=== PATIENT | male | born 1985 | race Caucasian/White ===

== ENCOUNTER 2016-12-02 17:08 | Emergency (ER) | payer MEDICAID ==
--- NOTE | 2016-12-02 17:58 | ED ---
Substance Abuse/Use - HPI Summary HPI Summary: 31yo male presents after getting in a verbal altercation with his parents while he was intoxicated from alcohol. His parents called the police who decided to bring the patient here to 'diffuse things' per patient. Patient was not charged by the police. No other c/os or concerns. No history of physical withdrawal. Denies any other substance. Denies HI/SI. Denies previous HI/SI or violent behavior. Patient without nausea, vomiting or trauma. Patient gave permission to discuss with his mother, Doris See. Per mother, same story as above. Mother asked if she could come now to pick him up. She stated that she has contacted a rehab facility who is willing to take him. She asked that we encourage him to go. She states that she feels safe with him at home. She does not wish to have another MHE, and does not feel that he is suicidal or poses a harm to others. She would like to take him home. - History Of Current Complaint Chief Complaint: ED Stated Complaint: 2208 Time Seen by Provider: 12/02/16 17:28 - Allergies/Home Medications Allergies/Adverse Reactions: Allergies Allergy/AdvReac Type Severity Reaction Status Date / Time No Known Allergies Allergy Verified 11/22/16 09:16 PMH/Surg Hx/FS Hx/Imm Hx Psychiatric History: Reports: Hx Anxiety, Hx Depression, Hx Substance Abuse Denies: Hx Eating Disorder Infectious Disease History: No Infectious Disease History: Denies: Traveled Outside the [place] in Last 30 Days - Family History Known Family History: Positive: Other - alcoholism Negative: Diabetes - Social History Lives: With Family Alcohol Use: Daily - 3/4 of bottle of whiskey today, but not daily Substance Use Type: Reports: None Substance Use Comment - Amount & Last Used: unknown Hx Tobacco Use: No Smoking Status (MU): Never Smoked Tobacco Review of Systems Positive: Slurred Speech - secondary to intoxication All Other Systems Reviewed And Are Negative: Yes Physical Exam - Summary Physical Exam Summary: GENERAL: Well appearing, No acute distress, well nourished. Slightly slurred speech, A and O x 3. Coherent. Normal gait. HEENT: Head atraumatic/normocephalic, EOMI/DENISE, conjunctiva clear NECK: Supple with normal range of motion during conversation. CARDIAC: RRR without murmur, rub or gallop LUNGS: Clear to auscultation without wheezing, rales or rhonchi. Normal respiratory effort. Breath sounds are symmetrical and equal. ABDOMEN: Abdomen is soft and non-tender. MUSCULOSKELETAL: Moves all extremities well. There is no peripheral edema. SKIN: Warm and dry, skin color reflects adequate perfusion. NEUROLOGICAL: Patient is alert and appropriate. Cranial nerves are grossly intact. PSYCHIATRIC: Intoxicated, but coherent and appropriate. Vital Signs On Initial Exam: Initial Vitals Temp Pulse Resp BP Pulse Ox 98.2 F 99 20 141/91 97 12/02/16 17:17 12/02/16 17:17 12/02/16 17:17 12/02/16 17:17 12/02/16 17:17 Diagnostics - Vital Signs Vital Signs Temp Pulse Resp BP Pulse Ox 12/02/16 17:17 98.2 F 99 20 141/91 97 - Laboratory Lab Statement: Any lab studies that have been ordered have been reviewed, and results considered in the medical decision making process. Course/Dx - Course Assessment/Plan: 31yo male with h/o alcohol abuse presents acutely intoxicated at the recommendation of the police after he had a verbal altercation with his parents who he lives with. Patient is not HI/SI. He is slurring his words, but he is coherent, alert and oriented. Discussed with mother at his request, who is comfortable bringing him home. Family and patient declined bloodwork. Patient eating and drinking without difficulty. No history of seizures/dt from withdrawal. Patient is considering inpatient rehab which was reinforced here, and is currently connected with an out patient facility. Discussed with Dr. Iqbal who agrees with plan of care. To return with any problems, concerns or worsening symptoms. - Diagnoses Provider Diagnoses: Acute alcohol intoxication - Physician Notifications Discussed Care Of Patient With: Dr. Iqbal Discharge - Discharge Plan Condition: Good Disposition: HOME Patient Education Materials: Alcohol Intoxication (ED), Alcohol Dependence (ED) Referrals: [facility] [place] [facility] [Outside] - 2 Days Additional Instructions: Please strongly consider an in patient rehabilitation facility to treat your alcoholism. There are multiple options have been given to you in your discharge packet. Please return with any problems, concerns or new/worsening symptoms.
[2016-12-02 18:37] VITALS: BP 128/71
== END 2016-12-02 18:36 | disposition home or self-care (01) ==
LOC: ED 17:08
DX: F10.129 Alcohol abuse with intoxication, unspecified (principal); R47.81 Slurred speech
CPT/HCPCS: 99281

== ENCOUNTER → 2016-12-08 19:38 | Emergency (ER) | payer MEDICAID ==
[2016-12-08 19:58] LABS: Urine Bilirubin Negative (Negative); Urine Glucose Negative (Negative); Urine Nitrite Negative (Negative)
[2016-12-08 20:07] LABS: Hematocrit 44 % (42-52); Hemoglobin 14.6 g/dl (14.0-18.0); Mean Corpuscular HGB Conc 33 g/dl (31-36); Mean Corpuscular Hemoglobin 30 pg (27-31); Mean Corpuscular Volume 91 fL (80-94); Mean Platelet Volume 7 um3 (7.4-10.4); Red Blood Count 4.82 10^6/ul (4.0-5.4); Red Cell Distribution Width 14 % (10.5-15); White Blood Count 5.3 10^3/ul (3.5-10.8)
[2016-12-08 20:13] LABS: Benzodiazepine Urine Screen None Detected (None Detect)
[2016-12-08 20:20] LABS: ALT 17 U/L (7-52); Albumin 4.7 g/dL (3.2-5.2); Alkaline Phosphatase 62 U/L (34-104); BUN/Creatinine Ratio 12.4 (8-20); Blood Urea Nitrogen 12 mg/dL (6-24); CO2 Carbon Dioxide 22 mmol/L (22-32); Calcium 9.6 mg/dL (8.6-10.3); Chloride 106 mmol/L (101-111); EGFR African American 114.6 (>60); EGFR Non-African American 89.1 (>60); Globulin 3.6 g/dL (2-4); Glucose 105 mg/dL (70-100); Sodium 135 mmol/L (133-145); Total Protein 8.3 g/dL (6.4-8.9)
[2016-12-08 21:00] LABS: Acetaminophen < 15 mcg/mL; Alcohol 314 mg/dL (<10); Salicylate < 2.50 mg/dL (<30)
[2016-12-08 21:01] LABS: AST 20 U/L (13-39); Anion Gap 7 mmol/L (2-11); Potassium 4.7 mmol/L (3.5-5.0)
[2016-12-08 21:11] LABS: TSH (Thyroid Stimulating Horm) 1.08 mcIU/mL (0.34-5.60)
--- NOTE | 2016-12-08 22:43 | ED ---
Psychiatric Complaint - HPI Summary HPI Summary: Patient is BIB police after his parents called the police. He says he does not know why his parents chose to do this. According to him he was simply in his room drinking beer and thinks his parents don't know how to talk to him about his drinking, and that "he has worn out his welcome". He has been living with them for the past two months while he tries "to find the perfect job". He says his mother told the police he wanted to kill himself, and he adamantly denies this, and denies he has ever wanted or tried to harm himself. He denies HI as well. - History Of Current Complaint Chief Complaint: EDMentalHealth Time Seen by Provider: 12/08/16 19:44 Hx Obtained From: Patient Onset/Duration: Gradual Onset Timing: Constant Severity Initially: Severe Severity Currently: Mild Character: Stuporous - patient appears intoxicated and has slurred speech Aggravating Factor(s): Alcohol Use Alleviating Factor(s): Nothing Associated Signs And Symptoms: Positive: Social Withdrawal - Allergies/Home Medications Allergies/Adverse Reactions: Allergies Allergy/AdvReac Type Severity Reaction Status Date / Time No Known Allergies Allergy Verified 12/09/16 06:57 Home Medications: Home Medications Sertraline* [Zoloft*] 50 mg PO DAILY 12/09/16 [History Confirmed 12/09/16] PMH/Surg Hx/FS Hx/Imm Hx Psychiatric History: Reports: Hx Anxiety, Hx Depression, Hx of Violent Episodes Against Others, Hx Substance Abuse Denies: Hx Eating Disorder Infectious Disease History: No Infectious Disease History: Denies: Traveled Outside the [place] in Last 30 Days - Family History Known Family History: Positive: Unknown - unable to obtain, Other - alcoholism Negative: Diabetes - Social History Occupation: Unemployed Lives: With Family Alcohol Use: Daily Substance Use Type: Reports: None Substance Use Comment - Amount & Last Used: unknown Hx Tobacco Use: No Smoking Status (MU): Never Smoked Tobacco Review of Systems Positive: Other - alcohol intoxication All Other Systems Reviewed And Are Negative: Yes Physical Exam Triage Information Reviewed: Yes Vital Signs On Initial Exam: Initial Vitals Temp Pulse Resp BP Pulse Ox 99 F 102 16 147/86 96 12/08/16 19:46 12/08/16 19:46 12/08/16 19:46 12/08/16 19:46 12/08/16 19:46 Vital Signs Reviewed: Yes Appearance: Positive: Well-Appearing, No Pain Distress, Well-Nourished Skin: Positive: Warm, Skin Color Reflects Adequate Perfusion, Dry, Soft Head/Face: Positive: Normal Head/Face Inspection Eyes: Positive: EOMI, [place], Conjunctiva Clear ENT: Positive: Hearing grossly normal Respiratory/Lung Sounds: Positive: Clear to Auscultation, Breath Sounds Present Cardiovascular: Positive: RRR Abdomen Description: Positive: Nontender, Soft Bowel Sounds: Positive: Present Musculoskeletal: Negative: Edema Left, Edema Right Neurological: Positive: Sensory/Motor Intact, Alert, Oriented to Person Place, Time, [place] Bundle Intact Distally, Normal Gait Psychiatric: Positive: Affect/Mood Appropriate - patient is cooperative and cordial during exam AVPU Assessment: Alert Diagnostics - Vital Signs Vital Signs Temp Pulse Resp BP Pulse Ox 12/08/16 19:46 99 F 102 16 147/86 96 - Laboratory Lab Results: Lab Results 12/08/16 12/08/16 12/08/16 Range/Units 19:41 19:41 19:52 WBC 5.3 (3.5-10.8) 10^3/ul RBC 4.82 (4.0-5.4) 10^6/ul Hgb 14.6 (14.0-18.0) g/dl Hct 44 (42-52) % MCV 91 (80-94) fL MCH 30 (27-31) pg MCHC 33 (31-36) g/dl RDW 14 (10.5-15) % Plt Count 248 (150-450) 10^3/ul MPV 7 L (7.4-10.4) um3 Neut % (Auto) 51.5 (38-83) % Lymph % (Auto) 36.1 (25-47) % [place] % (Auto) 10.5 H (1-9) % Eos % (Auto) 1.6 (0-6) % Baso % (Auto) 0.3 (0-2) % Absolute Neuts (auto) 2.7 (1.5-7.7) 10^3/ul Absolute Lymphs (auto) 1.9 (1.0-4.8) 10^3/ul Absolute Monos (auto) 0.6 (0-0.8) 10^3/ul Absolute Eos (auto) 0.1 (0-0.6) 10^3/ul Absolute Basos (auto) 0 (0-0.2) 10^3/ul Absolute Nucleated RBC 0 10^3/ul Nucleated RBC % 0.1 Sodium (133-145) mmol/L Potassium (3.5-5.0) mmol/L Chloride (101-111) mmol/L Carbon Dioxide (22-32) mmol/L Anion Gap (2-11) mmol/L BUN (6-24) mg/dL Creatinine (0.67-1.17) mg/dL Est GFR ( Amer) (>60) Est GFR (Non-Af Amer) (>60) BUN/Creatinine Ratio (8-20) Glucose (70-100) mg/dL Calcium (8.6-10.3) mg/dL Total Bilirubin (0.2-1.0) mg/dL AST (13-39) U/L ALT (7-52) U/L Alkaline Phosphatase (34-104) U/L Total Protein (6.4-8.9) g/dL Albumin (3.2-5.2) g/dL Globulin (2-4) g/dL Albumin/Globulin Ratio (1-3) TSH (0.34-5.60) mcIU/mL Urine Color Straw Urine Appearance Clear Urine pH 5.0 (5-9) Ur Specific [place] 1.006 L (1.010-1.030) Urine Protein Negative (Negative) Urine Ketones Negative (Negative) Urine Blood Negative (Negative) Urine Nitrate Negative (Negative) Urine Bilirubin Negative (Negative) Urine Urobilinogen Negative (Negative) Ur Leukocyte Esterase Negative (Negative) Urine Glucose Negative (Negative) Salicylates (<30) mg/dL Urine Opiates Screen None detected (None Detect) Acetaminophen mcg/mL Ur Barbiturates Screen None detected (None Detect) Ur Phencyclidine Scrn None detected (None Detect) Ur Amphetamines Screen None detected (None Detect) U Benzodiazepines Scrn None detected (None Detect) Urine Cocaine Screen None detected (None Detect) U Cannabinoids Screen None detected (None Detect) Serum Alcohol (<10) mg/dL 12/08/16 Range/Units 19:52 WBC (3.5-10.8) 10^3/ul RBC (4.0-5.4) 10^6/ul Hgb (14.0-18.0) g/dl Hct (42-52) % MCV (80-94) fL MCH (27-31) pg MCHC (31-36) g/dl RDW (10.5-15) % Plt Count (150-450) 10^3/ul MPV (7.4-10.4) um3 Neut % (Auto) (38-83) % Lymph % (Auto) (25-47) % [place] % (Auto) (1-9) % Eos % (Auto) (0-6) % Baso % (Auto) (0-2) % Absolute Neuts (auto) (1.5-7.7) 10^3/ul Absolute Lymphs (auto) (1.0-4.8) 10^3/ul Absolute Monos (auto) (0-0.8) 10^3/ul Absolute Eos (auto) (0-0.6) 10^3/ul Absolute Basos (auto) (0-0.2) 10^3/ul Absolute Nucleated RBC 10^3/ul Nucleated RBC % Sodium 135 (133-145) mmol/L Potassium 4.7 (3.5-5.0) mmol/L Chloride 106 (101-111) mmol/L Carbon Dioxide 22 (22-32) mmol/L Anion Gap 7 (2-11) mmol/L BUN 12 (6-24) mg/dL Creatinine 0.97 (0.67-1.17) mg/dL Est GFR ( Amer) 114.6 (>60) Est GFR (Non-Af Amer) 89.1 (>60) BUN/Creatinine Ratio 12.4 (8-20) Glucose 105 H (70-100) mg/dL Calcium 9.6 (8.6-10.3) mg/dL Total Bilirubin 0.30 (0.2-1.0) mg/dL AST 20 (13-39) U/L ALT 17 (7-52) U/L Alkaline Phosphatase 62 (34-104) U/L Total Protein 8.3 (6.4-8.9) g/dL Albumin 4.7 (3.2-5.2) g/dL Globulin 3.6 (2-4) g/dL Albumin/Globulin Ratio 1.3 (1-3) TSH 1.08 (0.34-5.60) mcIU/mL Urine Color Urine Appearance Urine pH (5-9) Ur Specific [place] (1.010-1.030) Urine Protein (Negative) Urine Ketones (Negative) Urine Blood (Negative) Urine Nitrate (Negative) Urine Bilirubin (Negative) Urine Urobilinogen (Negative) Ur Leukocyte Esterase (Negative) Urine Glucose (Negative) Salicylates < 2.50 (<30) mg/dL Urine Opiates Screen (None Detect) Acetaminophen < 15 mcg/mL Ur Barbiturates Screen (None Detect) Ur Phencyclidine Scrn (None Detect) Ur Amphetamines Screen (None Detect) U Benzodiazepines Scrn (None Detect) Urine Cocaine Screen (None Detect) U Cannabinoids Screen (None Detect) Serum Alcohol 314 H (<10) mg/dL Result Diagrams: 12/08/16 19:52 12/08/16 19:52 Lab Statement: Any lab studies that have been ordered have been reviewed, and results considered in the medical decision making process. Course/Dx - Differential Dx/Clinical Impression Differential Diagnosis/HQI/PQRI: Positive: Acute Psychosis, Alcohol Intoxication , Anxiety, Bipolar Disorder, Depression, Schizophrenia, Suicidal Ideation Provider Diagnosis: Alcohol intoxication - Physician Notifications Discussed Care Of Patient With: Patient signed out to Dr. Gupta. Time Discussed With Above Provider: 02:00 Patient Is Medically Stable For: Psych Evaluation Discharge - Discharge Plan Condition: Stable Disposition: HOME Referrals: Amos Gonzalez MD [Primary Care Provider] -
[2016-12-09 13:24] VITALS: BP 140/87
--- NOTE | 2016-12-09 15:27 | ED ---
Progress - Progress Note Progress Note: DISCHARGE PER PSYCH DISPO: HOME - Consult/PCP Time Called: 05:00 Course/Dx - Diagnoses Provider Diagnoses: Alcohol intoxication
== END | disposition home or self-care (01) ==
LOC: ED 19:38
DX: F10.129 Alcohol abuse with intoxication, unspecified (principal); Y90.9 Presence of alcohol in blood, level not specified
CPT/HCPCS: 36415; 80053; 80307; 80320; 80329; 81003; 84443; 85025; 99284; G0480

== ENCOUNTER 2016-12-22 18:26 | Emergency (ER) | payer MEDICAID ==
[2016-12-22 22:31] LABS: Hematocrit 40 % (42-52); Hemoglobin 13.7 g/dl (14.0-18.0); Mean Corpuscular HGB Conc 34 g/dl (31-36); Mean Corpuscular Hemoglobin 31 pg (27-31); Mean Corpuscular Volume 91 fL (80-94); Mean Platelet Volume 7 um3 (7.4-10.4); Red Blood Count 4.44 10^6/ul (4.0-5.4); Red Cell Distribution Width 13 % (10.5-15); White Blood Count 4.4 10^3/ul (3.5-10.8)
[2016-12-22 22:35] LABS: Urine Bilirubin Negative (Negative); Urine Glucose Negative (Negative); Urine Nitrite Negative (Negative)
[2016-12-22 22:44] LABS: ALT 17 U/L (7-52); AST 23 U/L (13-39); Albumin 4.4 g/dL (3.2-5.2); Alkaline Phosphatase 49 U/L (34-104); Anion Gap 5 mmol/L (2-11); BUN/Creatinine Ratio 12.2 (8-20); Benzodiazepine Urine Screen None Detected (None Detect); Blood Urea Nitrogen 12 mg/dL (6-24); CO2 Carbon Dioxide 29 mmol/L (22-32); Calcium 9.2 mg/dL (8.6-10.3); Chloride 107 mmol/L (101-111); EGFR African American 113.3 (>60); EGFR Non-African American 88.1 (>60); Glucose 106 mg/dL (70-100); Potassium 3.9 mmol/L (3.5-5.0); Sodium 141 mmol/L (133-145); Total Protein 7.4 g/dL (6.4-8.9)
[2016-12-22 23:04] LABS: Acetaminophen < 15 mcg/mL; Alcohol 320 mg/dL (<10); Salicylate < 2.50 mg/dL (<30)
[2016-12-22 23:14] LABS: TSH (Thyroid Stimulating Horm) 0.61 mcIU/mL (0.34-5.60)
--- NOTE | 2016-12-23 00:39 | ED ---
Maria Teresa Wilson Michael, scribed for Trung Iqbal MD on 12/22/16 at 1840 . Substance Abuse/Use - HPI Summary HPI Summary: 31 y/o male was BIBA as a 2209 for alcohol abuse today. The pt was found having a BM in public. The HPI is limited due to AMS. The pt is a level 5 caveat. - History Of Current Complaint Stated Complaint: 2208 Hx Obtained From: EMS, Medical Records Hx From Patient Unobtainable Due To: Altered Mental Status - level 5 caveat Severity Initially: Moderate Severity Currently: Moderate Character: Stuporous - Allergies/Home Medications Allergies/Adverse Reactions: Allergies Allergy/AdvReac Type Severity Reaction Status Date / Time No Known Allergies Allergy Verified 12/09/16 06:57 PMH/Surg Hx/FS Hx/Imm Hx Psychiatric History: Reports: Hx Anxiety, Hx Depression, Hx of Violent Episodes Against Others, Hx Substance Abuse Denies: Hx Eating Disorder Infectious Disease History: Denies: Traveled Outside the [place] in Last 30 Days - Family History Known Family History: Positive: Unknown - unable to obtain, Other - alcoholism Negative: Diabetes - Social History Lives: With Family Alcohol Use: Daily Substance Use Type: Reports: None Substance Use Comment - Amount & Last Used: unknown Hx Tobacco Use: No Smoking Status (MU): Never Smoked Tobacco Review of Systems - ROS Summary Review of Systems Summary: pt is a level 5 caveat Positive: Other - AMS All Other Systems Reviewed And Are Negative: No Physical Exam - Summary Physical Exam Summary: arrived in handcuffs Limited due to level 5 caveat Triage Information Reviewed: Yes Vital Signs On Initial Exam: Initial Vitals Temp Pulse Resp BP Pulse Ox 98.1 F 102 16 123/76 95 12/22/16 18:46 12/22/16 18:46 12/22/16 18:46 12/22/16 18:46 12/22/16 18:46 Vital Signs Reviewed: Yes Appearance: Positive: Well-Appearing, No Pain Distress Skin: Positive: Warm, Skin Color Reflects Adequate Perfusion, Dry Head/Face: Positive: Normal Head/Face Inspection Neck: Positive: Supple, Nontender Respiratory/Lung Sounds: Positive: Clear to Auscultation, Breath Sounds Present Abdomen Description: Positive: Nontender, Soft Neurological: Positive: Other - stuporous. resonds to voice. Diagnostics - Vital Signs Vital Signs Temp Pulse Resp BP Pulse Ox 12/22/16 23:00 95 94 12/22/16 22:23 98 96 12/22/16 22:19 108 97 12/22/16 21:24 93 97 12/22/16 18:46 98.1 F 102 16 123/76 95 - Laboratory Lab Results: Lab Results 12/22/16 12/22/16 12/22/16 Range/Units 22:10 22:10 22:10 WBC 4.4 (3.5-10.8) 10^3/ul RBC 4.44 (4.0-5.4) 10^6/ul Hgb 13.7 L (14.0-18.0) g/dl Hct 40 L (42-52) % MCV 91 (80-94) fL MCH 31 (27-31) pg MCHC 34 (31-36) g/dl RDW 13 (10.5-15) % Plt Count 292 (150-450) 10^3/ul MPV 7 L (7.4-10.4) um3 Neut % (Auto) 56.6 (38-83) % Lymph % (Auto) 34.5 (25-47) % [place] % (Auto) 8.3 (1-9) % Eos % (Auto) 0.3 (0-6) % Baso % (Auto) 0.3 (0-2) % Absolute Neuts (auto) 2.5 (1.5-7.7) 10^3/ul Absolute Lymphs (auto) 1.5 (1.0-4.8) 10^3/ul Absolute Monos (auto) 0.4 (0-0.8) 10^3/ul Absolute Eos (auto) 0 (0-0.6) 10^3/ul Absolute Basos (auto) 0 (0-0.2) 10^3/ul Absolute Nucleated RBC 0 10^3/ul Nucleated RBC % 0.1 Sodium 141 (133-145) mmol/L Potassium 3.9 (3.5-5.0) mmol/L Chloride 107 (101-111) mmol/L Carbon Dioxide 29 (22-32) mmol/L Anion Gap 5 (2-11) mmol/L BUN 12 (6-24) mg/dL Creatinine 0.98 (0.67-1.17) mg/dL Est GFR ( Amer) 113.3 (>60) Est GFR (Non-Af Amer) 88.1 (>60) BUN/Creatinine Ratio 12.2 (8-20) Glucose 106 H (70-100) mg/dL Calcium 9.2 (8.6-10.3) mg/dL Total Bilirubin 0.20 (0.2-1.0) mg/dL AST 23 (13-39) U/L ALT 17 (7-52) U/L Alkaline Phosphatase 49 (34-104) U/L Total Protein 7.4 (6.4-8.9) g/dL Albumin 4.4 (3.2-5.2) g/dL Globulin 3.0 (2-4) g/dL Albumin/Globulin Ratio 1.5 (1-3) TSH 0.61 (0.34-5.60) mcIU/mL Urine Color Yellow Urine Appearance Clear Urine pH 5.0 (5-9) Ur Specific [place] 1.009 L (1.010-1.030) Urine Protein Negative (Negative) Urine Ketones Negative (Negative) Urine Blood Negative (Negative) Urine Nitrate Negative (Negative) Urine Bilirubin Negative (Negative) Urine Urobilinogen Negative (Negative) Ur Leukocyte Esterase Negative (Negative) Urine Glucose Negative (Negative) Salicylates < 2.50 (<30) mg/dL Urine Opiates Screen (None Detect) Acetaminophen < 15 mcg/mL Ur Barbiturates Screen (None Detect) Ur Phencyclidine Scrn (None Detect) Ur Amphetamines Screen (None Detect) U Benzodiazepines Scrn (None Detect) Urine Cocaine Screen (None Detect) U Cannabinoids Screen (None Detect) Serum Alcohol 320 H (<10) mg/dL 12/22/16 Range/Units 22:10 WBC (3.5-10.8) 10^3/ul RBC (4.0-5.4) 10^6/ul Hgb (14.0-18.0) g/dl Hct (42-52) % MCV (80-94) fL MCH (27-31) pg MCHC (31-36) g/dl RDW (10.5-15) % Plt Count (150-450) 10^3/ul MPV (7.4-10.4) um3 Neut % (Auto) (38-83) % Lymph % (Auto) (25-47) % [place] % (Auto) (1-9) % Eos % (Auto) (0-6) % Baso % (Auto) (0-2) % Absolute Neuts (auto) (1.5-7.7) 10^3/ul Absolute Lymphs (auto) (1.0-4.8) 10^3/ul Absolute Monos (auto) (0-0.8) 10^3/ul Absolute Eos (auto) (0-0.6) 10^3/ul Absolute Basos (auto) (0-0.2) 10^3/ul Absolute Nucleated RBC 10^3/ul Nucleated RBC % Sodium (133-145) mmol/L Potassium (3.5-5.0) mmol/L Chloride (101-111) mmol/L Carbon Dioxide (22-32) mmol/L Anion Gap (2-11) mmol/L BUN (6-24) mg/dL Creatinine (0.67-1.17) mg/dL Est GFR ( Amer) (>60) Est GFR (Non-Af Amer) (>60) BUN/Creatinine Ratio (8-20) Glucose (70-100) mg/dL Calcium (8.6-10.3) mg/dL Total Bilirubin (0.2-1.0) mg/dL AST (13-39) U/L ALT (7-52) U/L Alkaline Phosphatase (34-104) U/L Total Protein (6.4-8.9) g/dL Albumin (3.2-5.2) g/dL Globulin (2-4) g/dL Albumin/Globulin Ratio (1-3) TSH (0.34-5.60) mcIU/mL Urine Color Urine Appearance Urine pH (5-9) Ur Specific [place] (1.010-1.030) Urine Protein (Negative) Urine Ketones (Negative) Urine Blood (Negative) Urine Nitrate (Negative) Urine Bilirubin (Negative) Urine Urobilinogen (Negative) Ur Leukocyte Esterase (Negative) Urine Glucose (Negative) Salicylates (<30) mg/dL Urine Opiates Screen None detected (None Detect) Acetaminophen mcg/mL Ur Barbiturates Screen None detected (None Detect) Ur Phencyclidine Scrn None detected (None Detect) Ur Amphetamines Screen None detected (None Detect) U Benzodiazepines Scrn None detected (None Detect) Urine Cocaine Screen None detected (None Detect) U Cannabinoids Screen None detected (None Detect) Serum Alcohol (<10) mg/dL Result Diagrams: 12/22/16 22:10 12/22/16 22:10 Lab Statement: Any lab studies that have been ordered have been reviewed, and results considered in the medical decision making process. Course/Dx - Course Assessment/Plan: STABLE IN ED. FAMILY TO PICK PATIENT UP FROM ED. DISCHARGE HOME STABLE. - Diagnoses Provider Diagnoses: Alcohol intoxication Discharge - Discharge Plan Condition: Stable Disposition: HOME Patient Education Materials: Alcohol Intoxication (ED) Referrals: [facility] [Outside] [facility] [Outside] Amos Gonzalez MD [Primary Care Provider] - Additional Instructions: FOLLOW UP WITH YOUR DOCTOR. RETURN TO THE EMERGENCY DEPARTMENT FOR ANY WORSENING OF YOUR CONDITION OR QUESTIONS OR CONCERNS. The documentation as recorded by the Maria Teresa bustillos Michael accurately reflects the service I personally performed and the decisions made by me, Trung Iqbal MD.
[2016-12-23 05:50] VITALS: BP 113/72
== END 2016-12-23 01:30 | disposition home or self-care (01) ==
LOC: ED 18:26
DX: F10.129 Alcohol abuse with intoxication, unspecified (principal); Y90.8 Blood alcohol level of 240 mg/100 ml or more
CPT/HCPCS: 36415; 80053; 80307; 80320; 80329; 81003; 84443; 85025; 99283; G0480

== ENCOUNTER 2017-06-20 18:45 | Emergency (ER) | payer MEDICAID ==
[2017-06-20 20:01] LABS: Hematocrit 41 % (42-52); Hemoglobin 13.7 g/dl (14.0-18.0); Mean Corpuscular HGB Conc 33 g/dl (31-36); Mean Corpuscular Hemoglobin 31 pg (27-31); Mean Corpuscular Volume 93 fL (80-94); Mean Platelet Volume 7 um3 (7.4-10.4); Red Blood Count 4.42 10^6/ul (4.0-5.4); Red Cell Distribution Width 14 % (10.5-15); White Blood Count 6.5 10^3/ul (3.5-10.8)
[2017-06-20 20:16] LABS: ALT 18 U/L (7-52); AST 19 U/L (13-39); Albumin 4.2 g/dL (3.2-5.2); Alkaline Phosphatase 51 U/L (34-104); Anion Gap 5 mmol/L (2-11); BUN/Creatinine Ratio 17.3 (8-20); Blood Urea Nitrogen 17 mg/dL (6-24); CO2 Carbon Dioxide 28 mmol/L (22-32); Calcium 9.2 mg/dL (8.6-10.3); Chloride 104 mmol/L (101-111); EGFR African American 112.6 (>60); EGFR Non-African American 87.6 (>60); Glucose 105 mg/dL (70-100); Potassium 3.7 mmol/L (3.5-5.0); Sodium 137 mmol/L (133-145); Total Protein 7.2 g/dL (6.4-8.9)
[2017-06-20 20:31] LABS: Acetaminophen < 15 mcg/mL; Alcohol 160 mg/dL (<10); Salicylate < 2.50 mg/dL (<30)
[2017-06-20 20:41] LABS: TSH (Thyroid Stimulating Horm) 2.57 mcIU/mL (0.34-5.60)
--- NOTE | 2017-06-20 21:36 | ED ---
Malik Wilson Alfonso, scribed for George Galo on 06/20/17 at 1931 . Substance Abuse/Use - HPI Summary HPI Summary: This patient is a 32 year old M BIBA with police 2208 to [facility] for an altercation at approximately 1730 today. He reports I had a little fight with my parents. I just got back from [place] and we fought about money. Pt rates the pain 0/10 in severity. Symptoms aggravated by recent stress and alleviated by nothing. Pt reports ETOH use (police reported 0.129 breathalyzer value). Pt denies pain, SI, and HI. PMHx of depression for which he is prescribed Zoloft. - History Of Current Complaint Chief Complaint: EDSubstanceAbuse Stated Complaint: 2208 Time Seen by Provider: 06/20/17 19:13 Hx Obtained From: Patient, Other: - Police report Onset/Duration of Drug/ETOH Abuse: Hours - approx. 1730 Ingestion History: Type/Name Of Drug - ETOH, Amount Ingested - 0.129 breathalyzer Overdose Characteristics: Oral Severity Initially: Moderate Severity Currently: Moderate Aggravating Factor(s): Recent Stress Alleviating Factor(s): Nothing Associated Signs And Symptoms: Other: - Pt denies pain, SI, and HI. - Allergies/Home Medications Allergies/Adverse Reactions: Allergies Allergy/AdvReac Type Severity Reaction Status Date / Time No Known Allergies Allergy Verified 06/20/17 18:48 PMH/Surg Hx/FS Hx/Imm Hx Psychiatric History: Reports: Hx Anxiety, Hx Depression, Hx of Violent Episodes Against Others, Hx Substance Abuse Denies: Hx Eating Disorder Infectious Disease History: No Infectious Disease History: Denies: Traveled Outside the [place] in Last 30 Days - Family History Known Family History: Positive: Other - alcoholism Negative: Diabetes - Social History Alcohol Use: Daily Substance Use Type: Reports: None Substance Use Comment - Amount & Last Used: unknown Hx Tobacco Use: No Smoking Status (MU): Never Smoked Tobacco Review of Systems Negative: Fever Positive: Other - Negative pain Psychological: Other - Positive ETOH use, altercation; Negative SI, HI. All Other Systems Reviewed And Are Negative: Yes Physical Exam Triage Information Reviewed: Yes Vital Signs On Initial Exam: Initial Vitals Temp Pulse Resp BP Pulse Ox 98.7 F 101 18 134/100 98 06/20/17 18:48 06/20/17 18:48 06/20/17 18:48 06/20/17 18:48 06/20/17 18:48 Vital Signs Reviewed: Yes Appearance: Positive: Well-Appearing, No Pain Distress Skin: Positive: Warm, Skin Color Reflects Adequate Perfusion, Dry Head/Face: Positive: Normal Head/Face Inspection Eyes: Positive: EOMI, S[place] ENT: Positive: Normal ENT inspection Neck: Positive: Supple, Nontender Respiratory/Lung Sounds: Positive: Clear to Auscultation, Breath Sounds Present Cardiovascular: Positive: Pulses are Symmetrical in both Upper and Lower Extremities, Tachycardia Abdomen Description: Positive: Nontender, Soft Bowel Sounds: Positive: Present Musculoskeletal: Positive: Normal, Strength/ROM Intact Neurological: Positive: Normal, Sensory/Motor Intact, Alert, Oriented to Person Place, Time - [place] Coma Scale Coma Scale Total: 15 Diagnostics - Vital Signs Vital Signs Temp Pulse Resp BP Pulse Ox 06/20/17 19:11 94 97 06/20/17 19:09 137/97 06/20/17 18:48 98.7 F 101 18 134/100 98 - Laboratory Lab Results: Lab Results 06/20/17 06/20/17 Range/Units 19:55 19:55 WBC 6.5 (3.5-10.8) 10^3/ul RBC 4.42 (4.0-5.4) 10^6/ul Hgb 13.7 L (14.0-18.0) g/dl Hct 41 L (42-52) % MCV 93 (80-94) fL MCH 31 (27-31) pg MCHC 33 (31-36) g/dl RDW 14 (10.5-15) % Plt Count 256 (150-450) 10^3/ul MPV 7 L (7.4-10.4) um3 Neut % (Auto) 62.4 (38-83) % Lymph % (Auto) 24.9 L (25-47) % [place] % (Auto) 10.9 H (1-9) % Eos % (Auto) 1.3 (0-6) % Baso % (Auto) 0.5 (0-2) % Absolute Neuts (auto) 4.1 (1.5-7.7) 10^3/ul Absolute Lymphs (auto) 1.6 (1.0-4.8) 10^3/ul Absolute Monos (auto) 0.7 (0-0.8) 10^3/ul Absolute Eos (auto) 0.1 (0-0.6) 10^3/ul Absolute Basos (auto) 0 (0-0.2) 10^3/ul Absolute Nucleated RBC 0 10^3/ul Nucleated RBC % 0 Sodium 137 (133-145) mmol/L Potassium 3.7 (3.5-5.0) mmol/L Chloride 104 (101-111) mmol/L Carbon Dioxide 28 (22-32) mmol/L Anion Gap 5 (2-11) mmol/L BUN 17 (6-24) mg/dL Creatinine 0.98 (0.67-1.17) mg/dL Est GFR ( Amer) 112.6 (>60) Est GFR (Non-Af Amer) 87.6 (>60) BUN/Creatinine Ratio 17.3 (8-20) Glucose 105 H (70-100) mg/dL Calcium 9.2 (8.6-10.3) mg/dL Total Bilirubin 0.30 (0.2-1.0) mg/dL AST 19 (13-39) U/L ALT 18 (7-52) U/L Alkaline Phosphatase 51 (34-104) U/L Total Protein 7.2 (6.4-8.9) g/dL Albumin 4.2 (3.2-5.2) g/dL Globulin 3.0 (2-4) g/dL Albumin/Globulin Ratio 1.4 (1-3) TSH 2.57 (0.34-5.60) mcIU/mL Salicylates < 2.50 (<30) mg/dL Acetaminophen < 15 mcg/mL Serum Alcohol 160 H (<10) mg/dL Result Diagrams: 06/20/17 19:55 06/20/17 19:55 Lab Statement: Any lab studies that have been ordered have been reviewed, and results considered in the medical decision making process. Course/Dx - Course Assessment/Plan: 32 year old old M BIBA with police 2208 to [facility] for an altercation at approximately 1730 today. Pt reports ETOH use (police reported 0.129 breathalyzer value). Pt denies pain, SI, and HI. Lab results reveal serum alcohol of 160. Patient will be discharged with follow up from PCP. Pt is agreeable with this plan. family came to take him home. - Diagnoses Provider Diagnoses: ETOH abuse Discharge - Discharge Plan Condition: Stable Disposition: HOME Patient Education Materials: Abuse of Alcohol (ED) Referrals: Amos Gonzalez MD [Primary Care Provider] - 3 Days The documentation as recorded by the Malik bustillos Alfonso accurately reflects the service I personally performed and the decisions made by , George Galo.
[2017-06-20 21:39] VITALS: BP 134/86
== END 2017-06-20 21:37 | disposition home or self-care (01) ==
LOC: ED 18:45
DX: F10.10 Alcohol abuse, uncomplicated (principal); F32.9 Major depressive disorder, single episode, unspecified; Y90.6 Blood alcohol level of 120-199 mg/100 ml
CPT/HCPCS: 36415; 80053; 80320; 80329; 84443; 85025; 99282; G0480

== ENCOUNTER 2019-12-28 17:19 | Emergency (ER) | payer OTHER ==
[2019-12-28 18:14] LABS: ABS Lymphocytes 2.6 10^3/ul (1.0-4.8); ABS Monocytes 0.6 10^3/ul (0-0.8); ABS Neutrophils 3.1 10^3/ul (1.5-7.7); Eosinophil % 0.7 %; Hematocrit 43 % (42-52); Hemoglobin 15.3 g/dL (14.0-18.0); Lymphocyte % 41.6 %; Mean Corpuscular HGB Conc 35 g/dL (31-36); Mean Corpuscular Hemoglobin 31 pg (27-31); Mean Corpuscular Volume 87 fL (80-94); Mean Platelet Volume 6.7 fL (7.4-10.4); Platelet Count 339 10^3/uL (150-450); Red Blood Count 4.97 10^6 /uL (4.18-5.48); Red Cell Distribution Width 14 % (10-15); White Blood Count 6.4 10^3/uL (3.5-10.8)
[2019-12-28 18:17] LABS: Urine Appearance Clear; Urine Bilirubin Negative (Negative); Urine Blood 1+ (Negative); Urine Color Straw; Urine Glucose Negative (Negative); Urine Ketones Negative (Negative); Urine Nitrite Negative (Negative); Urine Protein Negative (Negative); Urine Specific Gravity 1.009 (1.010-1.030); Urine Urobilinogen Negative (Negative)
[2019-12-28 18:25] LABS: Urine Benzodiazepine Screen None Detected (None Detect); Urine Opiates Screen None Detected (None Detect)
[2019-12-28 18:28] LABS: ALT 46 U/L (7-52); Acetaminophen < 15 mcg/mL; Albumin 4.9 g/dL (3.2-5.2); Albumin/Globulin Ratio 1.5 (1-3); Alcohol 310 mg/dL (<10); Alkaline Phosphatase 64 U/L (34-104); BUN/Creatinine Ratio 16.3 (8-20); Blood Urea Nitrogen 17 mg/dL (6-24); CO2 Carbon Dioxide 26 mmol/L (22-32); Calcium 9.6 mg/dL (8.6-10.3); Chloride 103 mmol/L (101-111); EGFR African American 97.8 (>60); EGFR Non-African American 80.8 (>60); Globulin 3.2 g/dL (2-4); Glucose 101 mg/dL (70-100); Salicylate < 2.50 mg/dL (<30); Sodium 140 mmol/L (135-145); Total Protein 8.1 g/dL (6.4-8.9)
[2019-12-28 18:36] LABS: Urine Bacteria Absent (Absent); Urine Red Blood Cell Trace(0-2/hpf) (Absent); Urine Squamous Epithelial Cell Present (Absent); Urine White Blood Cell Trace(0-5/hpf) (Absent)
[2019-12-28 18:55] LABS: AST 35 U/L (13-39); Anion Gap 11 mmol/L (2-11)
--- NOTE | 2019-12-28 21:06 | ED ---
Psychiatric Complaint - HPI Summary HPI Summary: Patient is a 34 y/o M presenting to [facility] under 941 status for SI. It is reported that the patient had been consuming alcohol today and got into an argument with his mother. Patient made suicidal statements. In the room, patient reports drinking 4-5 alcoholic drinks today. He denies SI and HI currently but claims that he said "if you really cared about me you wouldn't fight with me, you want to see me hurt myself" to his mother during their argument. Patient reports Hx of depression, bipolar disorder, and PTSD. He states that he is on lamictal. NKDA reported. He denies physical complaints. Patient does not use tobacco but notes occasional marijuana usage, none today. Home medications and allergies are reviewed. - History Of Current Complaint Chief Complaint: EDMentalHealth Time Seen by Provider: 12/28/19 17:31 Hx Obtained From: Patient Onset/Duration: Resolved Timing: Intermittent Episode Lasting Aggravating Factor(s): Recent Stress Has Suicidal: Denies: Thoughts - no presently Has Homicidal: Denies: Thoughts - Allergies/Home Medications Allergies/Adverse Reactions: Allergies Allergy/AdvReac Type Severity Reaction Status Date / Time No Known Allergies Allergy Verified 12/28/19 17:27 Home Medications: Home Medications Naltrexone TAB* 50 mg PO DAILY 12/28/19 [History Confirmed 12/28/19] cloNIDine TAB* [Catapres 0.1 MG TAB*] 0.1 mg PO QID 12/28/19 [History Confirmed 12/28/19] hydrOXYzine HCL TAB* [Atarax 25 MG TAB*] 25 mg PO TID PRN 12/28/19 [History Confirmed 12/28/19] lamoTRIgine TAB(*) [LaMICtal TAB(*)] 50 mg PO DAILY 12/28/19 [History Confirmed 12/28/19] traZODone TAB* [Desyrel TAB*] 150 mg PO BEDTIME PRN 12/28/19 [History Confirmed 12/28/19] PMH/Surg Hx/FS Hx/Imm Hx Sensory History: Denies: Hx Legally Blind, Hx Deafness Opthamlomology History: Denies: Hx Legally Blind EENT History: Denies: Hx Deafness Psychiatric History: Reports: Hx Anxiety, Hx Depression, Hx Post Traumatic Stress Disorder, Hx Bipolar Disorder, Hx of Violent Episodes Against Others, Hx Substance Abuse Denies: Hx Eating Disorder Infectious Disease History: No Infectious Disease History: Denies: Traveled Outside the [place] in Last 30 Days - Family History Known Family History: Positive: Other - alcoholism Negative: Diabetes - Social History Alcohol Use: Daily Substance Use Type: Reports: Marijuana Substance Use Comment - Amount & Last Used: unknown Hx Tobacco Use: No Smoking Status (MU): Never Smoked Tobacco Review of Systems Constitutional: Other - positive - alcohol consumption Psychological: Other - patient denies having SI and HI currently All Other Systems Reviewed And Are Negative: Yes Physical Exam - Summary Physical Exam Summary: Constitutional: Well-developed, Well-nourished, Alert. (-) Distressed Skin: Warm, Dry HENT: Normocephalic; Atraumatic Eyes: Conjunctiva normal Neck: Musculoskeletal ROM normal neck. (-) JVD, (-) Stridor, (-) Tracheal deviation Cardio: Rhythm regular, rate normal, Heart sounds normal; Intact distal pulses; Radial pulses are 2+ and symmetric. (-) Murmur Pulmonary/Chest wall: Effort normal. (-) Respiratory distress, (-) Wheezes, (-) Rales Abd: Soft, (-) tenderness, (-) Distension, (-) Guarding, (-) Rebound Musculoskeletal: (-) Edema Lymph: (-) Cervical adenopathy Neuro: Alert, Oriented x3, Slurred Speech secondary to alcohol consumption, no acute focal neurological deficits Psych: Mood and affect Normal Triage Information Reviewed: Yes Vital Signs On Initial Exam: Initial Vitals Temp Pulse Resp BP Pulse Ox 98.6 F 116 20 133/95 94 12/28/19 17:24 12/28/19 17:24 12/28/19 17:24 12/28/19 17:24 12/28/19 17:24 Vital Signs Reviewed: Yes Procedures - Sedation Patient Received Moderate/Deep Sedation with Procedure: No Diagnostics - Vital Signs Vital Signs Temp Pulse Resp BP Pulse Ox 12/28/19 17:24 98.6 F 116 20 133/95 94 - Laboratory Lab Results: Lab Results 12/28/19 12/28/19 12/28/19 Range/Units 17:50 17:50 17:56 WBC 6.4 (3.5-10.8) 10^3/uL RBC 4.97 (4.18-5.48) 10^6 /uL Hgb 15.3 (14.0-18.0) g/dL Hct 43 (42-52) % MCV 87 (80-94) fL MCH 31 (27-31) pg MCHC 35 (31-36) g/dL RDW 14 (10-15) % Plt Count 339 (150-450) 10^3/uL MPV 6.7 L (7.4-10.4) fL Neut % (Auto) 48.0 % Lymph % (Auto) 41.6 % [place] % (Auto) 9.3 % Eos % (Auto) 0.7 % Baso % (Auto) 0.4 % Absolute Neuts (auto) 3.1 (1.5-7.7) 10^3/ul Absolute Lymphs (auto) 2.6 (1.0-4.8) 10^3/ul Absolute Monos (auto) 0.6 (0-0.8) 10^3/ul Absolute Eos (auto) 0.0 (0-0.6) 10^3/ul Absolute Basos (auto) 0.0 (0-0.2) 10^3/ul Absolute Nucleated RBC 0.0 10^3/ul Nucleated RBC % 0.0 Sodium 140 (135-145) mmol/L Potassium 4.0 (3.5-5.0) mmol/L Chloride 103 (101-111) mmol/L Carbon Dioxide 26 (22-32) mmol/L Anion Gap 11 (2-11) mmol/L BUN 17 (6-24) mg/dL Creatinine 1.04 (0.67-1.17) mg/dL Est GFR ( Amer) 97.8 (>60) Est GFR (Non-Af Amer) 80.8 (>60) BUN/Creatinine Ratio 16.3 (8-20) Glucose 101 H (70-100) mg/dL Calcium 9.6 (8.6-10.3) mg/dL Total Bilirubin 0.30 (0.2-1.0) mg/dL AST 35 (13-39) U/L ALT 46 (7-52) U/L Alkaline Phosphatase 64 (34-104) U/L Total Protein 8.1 (6.4-8.9) g/dL Albumin 4.9 (3.2-5.2) g/dL Globulin 3.2 (2-4) g/dL Albumin/Globulin Ratio 1.5 (1-3) Urine Color Straw Urine Appearance Clear Urine pH 5.0 (5-9) Ur Specific [place] 1.009 L (1.010-1.030) Urine Protein Negative (Negative) Urine Ketones Negative (Negative) Urine Blood 1+ A (Negative) Urine Nitrate Negative (Negative) Urine Bilirubin Negative (Negative) Urine Urobilinogen Negative (Negative) Ur Leukocyte Esterase Negative (Negative) Urine WBC (Auto) Trace(0-5/hpf) (Absent) Urine RBC (Auto) Trace(0-2/hpf) (Absent) Ur Squamous Epith Cells Present A (Absent) Urine Bacteria Absent (Absent) Urine Glucose Negative (Negative) Salicylates < 2.50 (<30) mg/dL Urine Opiates Screen (None Detect) Acetaminophen < 15 mcg/mL Ur Barbiturates Screen (None Detect) Ur Phencyclidine Scrn (None Detect) Ur Amphetamines Screen (None Detect) U Benzodiazepines Scrn (None Detect) Urine Cocaine Screen (None Detect) U Cannabinoids Screen (None Detect) Serum Alcohol 310 H (<10) mg/dL 12/28/19 Range/Units 17:56 WBC (3.5-10.8) 10^3/uL RBC (4.18-5.48) 10^6 /uL Hgb (14.0-18.0) g/dL Hct (42-52) % MCV (80-94) fL MCH (27-31) pg MCHC (31-36) g/dL RDW (10-15) % Plt Count (150-450) 10^3/uL MPV (7.4-10.4) fL Neut % (Auto) % Lymph % (Auto) % [place] % (Auto) % Eos % (Auto) % Baso % (Auto) % Absolute Neuts (auto) (1.5-7.7) 10^3/ul Absolute Lymphs (auto) (1.0-4.8) 10^3/ul Absolute Monos (auto) (0-0.8) 10^3/ul Absolute Eos (auto) (0-0.6) 10^3/ul Absolute Basos (auto) (0-0.2) 10^3/ul Absolute Nucleated RBC 10^3/ul Nucleated RBC % Sodium (135-145) mmol/L Potassium (3.5-5.0) mmol/L Chloride (101-111) mmol/L Carbon Dioxide (22-32) mmol/L Anion Gap (2-11) mmol/L BUN (6-24) mg/dL Creatinine (0.67-1.17) mg/dL Est GFR ( Amer) (>60) Est GFR (Non-Af Amer) (>60) BUN/Creatinine Ratio (8-20) Glucose (70-100) mg/dL Calcium (8.6-10.3) mg/dL Total Bilirubin (0.2-1.0) mg/dL AST (13-39) U/L ALT (7-52) U/L Alkaline Phosphatase (34-104) U/L Total Protein (6.4-8.9) g/dL Albumin (3.2-5.2) g/dL Globulin (2-4) g/dL Albumin/Globulin Ratio (1-3) Urine Color Urine Appearance Urine pH (5-9) Ur Specific [place] (1.010-1.030) Urine Protein (Negative) Urine Ketones (Negative) Urine Blood (Negative) Urine Nitrate (Negative) Urine Bilirubin (Negative) Urine Urobilinogen (Negative) Ur Leukocyte Esterase (Negative) Urine WBC (Auto) (Absent) Urine RBC (Auto) (Absent) Ur Squamous Epith Cells (Absent) Urine Bacteria (Absent) Urine Glucose (Negative) Salicylates (<30) mg/dL Urine Opiates Screen None detected (None Detect) Acetaminophen mcg/mL Ur Barbiturates Screen None detected (None Detect) Ur Phencyclidine Scrn None detected (None Detect) Ur Amphetamines Screen None detected (None Detect) U Benzodiazepines Scrn None detected (None Detect) Urine Cocaine Screen None detected (None Detect) U Cannabinoids Screen None detected (None Detect) Serum Alcohol (<10) mg/dL Result Diagrams: 12/28/19 17:50 12/28/19 17:50 Lab Statement: Any lab studies that have been ordered have been reviewed, and results considered in the medical decision making process. Course/Dx - Course Course Of Treatment: Patient is here with alcohol intoxication and suicidal thoughts. Patient's alcohol was 310. Patient Is Medically Cleared by Myself but Was Awaiting Sobriety for Psychiatric Evaluation. Patient signed out to Dr. Rose Pending Mental Health Evaluation - Differential Dx/Clinical Impression Provider Diagnosis: Substance abuse Discharge ED - Sign-Out/Discharge Documenting (check all that apply): Sign-Out Patient Signing out patient TO: Horacio Rose - Discharge Plan Condition: Stable Disposition: HOME Referrals: Amos Gonzalez MD [Primary Care Provider] - - Billing Disposition and Condition Condition: STABLE Disposition: Home - Attestation Statements Document Initiated by Scribe: Yes Documenting Scribe: AALIYAH MONTES Provider For Whom Maylin is Documenting (Include Credential): JOEL KRAUSE MD Scribe Attestation: AALIYAH Wilson, scribed for JOEL KRAUSE MD on 12/31/19 at 1104. Scribe Documentation Reviewed: Yes Provider Attestation: The documentation as recorded by the AALIYAH bustillos accurately reflects the service I personally performed and the decisions made by , JOEL KRAUSE MD Status of Scribe Document: Viewed
--- NOTE | 2019-12-28 23:45 | ED ---
Progress - Progress Note Progress Note: Patient signed out from Dr. Murphy upon shift change 12/28/2019 2200 pending clinical sobriety, psychiatric evaluation, and disposition. Re-Evaluation - Re-Evaluation First Eval Re-Evaluation Time: 02:00 Comment: patient is medically cleared for MHE Course/Dx - Course Course Of Treatment: Patient will be signed out to Dr. Mobley upon shift change 12/29/2019 0700 pending psychiatric evaluation and disposition. - Diagnoses Provider Diagnoses: Substance abuse Discharge ED - Sign-Out/Discharge Documenting (check all that apply): Sign-Out Patient, Receiving Sign-Out Signing out patient TO: Rosalio Mobley Receiving patient FROM: Steve Murphy - Discharge Plan Condition: Stable Disposition: HOME Referrals: Amos Gonzalez MD [Primary Care Provider] - - Billing Disposition and Condition Condition: STABLE Disposition: Home - Attestation Statements Document Initiated by Mary Annibe: Yes Documenting Scribe: Marcie Mora Provider For Whom Scribe is Documenting (Include Credential): Horacio Rose MD Scribe Attestation: Marcie Wilson, scribed for Horacio Rose MD on 01/01/20 at 0632. Scribe Documentation Reviewed: Yes Provider Attestation: The documentation as recorded by the Marcie bustillos accurately reflects the service I personally performed and the decisions made by meHoracio MD Status of Scribe Document: Viewed
[2019-12-29 04:46] VITALS: BP 137/86
--- NOTE | 2019-12-29 08:04 | ED ---
Progress - Progress Note Progress Note: The patient is a sign-out from Dr. Horacio Rose MD, to Dr. Rosalio Mobley MD , at change of shift at 0700 on 12/29/2019, pending mental health evaluation and disposition. Dr. Alvarez and mental health staff have evaluated the patient and have determined that the patient is appropriate for discharge. Patient agreeable with plan. Re-Evaluation - Re-Evaluation First Eval Re-Evaluation Time: 02:00 Comment: patient is medically cleared for MHE Course/Dx - Course Course Of Treatment: The patient is a sign-out from Dr. Horacio Rose MD, to Dr. Rosalio Mobley MD, at change of shift at 0700 on 12/29/2019, pending mental health evaluation and disposition. Dr. Alvarez and mental health staff have evaluated the patient and have determined that the patient is appropriate for discharge. Patient agreeable with plan. - Diagnoses Provider Diagnoses: Substance abuse - Provider Notifications Discussed Care Of Patient With: Braden Alvarez - psychiatry Time Discussed With Above Provider: 10:15 Instructed by Provider To: Other - Dr. Alvarez states that the patient can likely be discharged at this point. staff will d/c. Discharge ED - Sign-Out/Discharge Documenting (check all that apply): Patient Departure - Patient will be discharged home by staff., Receiving Sign-Out Receiving patient FROM: Horacio Rose - Patient is a sign-out from Dr. Horacio Rose MD, at 0700 on 12/29/2019, pending MHE and disposition. - Discharge Plan Condition: Stable Disposition: HOME Referrals: Amos Gonzalez MD [Primary Care Provider] - - Billing Disposition and Condition Condition: STABLE Disposition: Home - Attestation Statements Document Initiated by Maylin: Yes Documenting Scribe: Shavon Bernal Provider For Whom Maylin is Documenting (Include Credential): Dr. Rosalio Mobley MD Scribe Attestation: Shavon Wilson scribed for Dr. Rosalio Mobley MD on 12/29/19 at 1854. Scribe Documentation Reviewed: Yes Provider Attestation: The documentation as recorded by the Shavon bustillos accurately reflects the service I personally performed and the decisions made by me, Dr. Rosalio Mobley MD Status of Scribe Document: Viewed Procedures - Sedation Patient Received Moderate/Deep Sedation with Procedure: No
--- NOTE | 2019-12-29 08:52 | PN ---
ED Psychiatric Progress Note Date of Service: 12/28/19 Subjective: This is a 34 year-old M who is pending admission to [facility] / transfer to another psychiatric facility / discharge to home / or being observed secondary to SI and ETOH intoxication. Pt. examined in room 22 around 0845. Sitting on bed in NAD. Objective: Vitals: Most recent vital signs documented below. General NAD Laboratory: Current laboratory results documented below. Assessment: SI, ETOH intoxication. Plan: Pending MHE. Vital Signs Temp Pulse Resp BP Pulse Ox 97.9 F 112 16 137/86 96 12/29/19 04:35 12/29/19 04:35 12/29/19 04:35 12/29/19 04:35 12/29/19 04:35 Lab Results - Entire Visit 12/28/19 12/28/19 12/28/19 17:56 17:56 17:50 WBC RBC Hgb Hct MCV MCH MCHC RDW Plt Count MPV Neut % (Auto) Lymph % (Auto) [place] % (Auto) Eos % (Auto) Baso % (Auto) Absolute Neuts (auto) Absolute Lymphs (auto) Absolute Monos (auto) Absolute Eos (auto) Absolute Basos (auto) Absolute Nucleated RBC Nucleated RBC % Sodium 140 Potassium 4.0 Chloride 103 Carbon Dioxide 26 Anion Gap 11 BUN 17 Creatinine 1.04 Est GFR ( Amer) 97.8 Est GFR (Non-Af Amer) 80.8 BUN/Creatinine Ratio 16.3 Glucose 101 H Calcium 9.6 Total Bilirubin 0.30 AST 35 ALT 46 Alkaline Phosphatase 64 Total Protein 8.1 Albumin 4.9 Globulin 3.2 Albumin/Globulin Ratio 1.5 Urine Color Straw Urine Appearance Clear Urine pH 5.0 Ur Specific [place] 1.009 L Urine Protein Negative Urine Ketones Negative Urine Blood 1+ A Urine Nitrate Negative Urine Bilirubin Negative Urine Urobilinogen Negative Ur Leukocyte Esterase Negative Urine WBC (Auto) Trace(0-5/hpf) Urine RBC (Auto) Trace(0-2/hpf) Ur Squamous Epith Cells Present A Urine Bacteria Absent Urine Glucose Negative Salicylates < 2.50 Urine Opiates Screen None detected Acetaminophen < 15 Ur Barbiturates Screen None detected Ur Phencyclidine Scrn None detected Ur Amphetamines Screen None detected U Benzodiazepines Scrn None detected Urine Cocaine Screen None detected U Cannabinoids Screen None detected Serum Alcohol 310 H 12/28/19 17:50 WBC 6.4 RBC 4.97 Hgb 15.3 Hct 43 MCV 87 MCH 31 MCHC 35 RDW 14 Plt Count 339 MPV 6.7 L Neut % (Auto) 48.0 Lymph % (Auto) 41.6 [place] % (Auto) 9.3 Eos % (Auto) 0.7 Baso % (Auto) 0.4 Absolute Neuts (auto) 3.1 Absolute Lymphs (auto) 2.6 Absolute Monos (auto) 0.6 Absolute Eos (auto) 0.0 Absolute Basos (auto) 0.0 Absolute Nucleated RBC 0.0 Nucleated RBC % 0.0 Sodium Potassium Chloride Carbon Dioxide Anion Gap BUN Creatinine Est GFR ( Amer) Est GFR (Non-Af Amer) BUN/Creatinine Ratio Glucose Calcium Total Bilirubin AST ALT Alkaline Phosphatase Total Protein Albumin Globulin Albumin/Globulin Ratio Urine Color Urine Appearance Urine pH Ur Specific [place] Urine Protein Urine Ketones Urine Blood Urine Nitrate Urine Bilirubin Urine Urobilinogen Ur Leukocyte Esterase Urine WBC (Auto) Urine RBC (Auto) Ur Squamous Epith Cells Urine Bacteria Urine Glucose Salicylates Urine Opiates Screen Acetaminophen Ur Barbiturates Screen Ur Phencyclidine Scrn Ur Amphetamines Screen U Benzodiazepines Scrn Urine Cocaine Screen U Cannabinoids Screen Serum Alcohol
== END 2019-12-29 12:51 | disposition home or self-care (01) ==
LOC: ED 17:19
DX: F19.10 Other psychoactive substance abuse, uncomplicated (principal); F41.9 Anxiety disorder, unspecified; F31.9 Bipolar disorder, unspecified; F43.10 Post-traumatic stress disorder, unspecified; Z79.899 Other long term (current) drug therapy
CPT/HCPCS: 36415; 80053; 80307; 80320; 80329; 81003; 81015; 85025; 87086; 99284; G0480